=== PATIENT | female | born 1955 | race Caucasian/White ===

== ENCOUNTER 2018-12-17 13:06 | Emergency (ER) | payer OTHER ==
[~2018-12-17] VITALS: Ht 149.9 cm; Wt 57.7 kg
[2018-12-17 13:11] VITALS: BP 131/74
[2018-12-17] MEDS ORDERED: ACETAMINOPHEN EXTRA STRENGTH 500 MG TAB PO ONE (13:25)
[2018-12-17] MEDS ORDERED: IBUPROFEN 600 MG TAB PO ONE (13:25)
--- NOTE | 2018-12-17 13:30 | NUR ---
C/O ABD PAIN AND BODY ACHES X1 DAY. PT REPORTS EPIGASTRIC PAIN THAT RADIATES ACROSS ENTIRE ABD. DAUGHTER REPORTS FEVER LAST NIGHT, CURRENT TEMP IS 102.1. + NAUSEA. - DIARRHEA. DENIES DIARRHEA AND VOMITING; SKIN IS PINK/WARM/DRY; AAOX4 WITH EVEN AND STEADY GAIT; LUNGS CLEAR BL; HR EVEN AND REGULAR; PT DENIES ANY FEVER, CP, SOB, OR COUGH AT THIS TIME; PATIENT STATES PAIN OF 9/10 AT THIS TIME; VSS; PATIENT POSITIONED FOR COMFORT; HOB ELEVATED; BEDRAILS UP X1; BED DOWN. ER MD MADE AWARE OF PT STATUS.
[2018-12-17 13:41] LABS: BASOPHILS % (AUTO) 0.2 % (0.0-2.0); EOSINOPHILS % (AUTO) 0.2 % (0.0-4.0); HEMATOCRIT 41.3 % (36-48); HEMOGLOBIN 14.1 g/dL (12.0-16.0); LYMPHOCYTES # (AUTO) 0.8 K/uL (2.5-16.5); LYMPHOCYTES % (AUTO) 10.6 % (20.5-51.1); MEAN CORPUSCULAR HEMOGLOBIN 31 pg (27-31); MEAN CORPUSCULAR HGB CONC 34 g/dL (33-37); MEAN CORPUSCULAR VOLUME 91.8 fL (80-94); MONOCYTES # (AUTO) 0.5 K/uL (0.8-1.0); MONOCYTES % (AUTO) 7.2 % (1.7-9.3); NEUTROPHILS # (AUTO) 6.2 K/uL (1.8-7.7); NEUTROPHILS % (AUTO) 81.8 % (42.2-75.2); PLATELET COUNT (AUTO) 203 K/uL (140-450); RED CELL DISTRIBUTION WIDTH 12.6 % (11.6-13.7); WHITE BLOOD COUNT (AUTO) 7.5 K/uL (4.8-10.8)
[2018-12-17 14:10] LABS: ANION GAP 12.6 (8-16); CARBON DIOXIDE 26.9 mmol/L (21-32); CREATININE 0.6 mg/dL (0.6-1.3); POTASSIUM 3.5 mmol/L (3.5-5.1)
[2018-12-17 14:16] LABS: ALBUMIN 3.8 g/dL (3.4-5.0)
[2018-12-17 14:46] LABS: BILIRUBIN,URINE 1+ (NEGATIVE); BLOOD, URINE TRACE-I (NEGATIVE); COLOR,URINE YELLOW (YELLOW); LEUKOCYTE ESTERASE ,URINE TRACE (NEGATIVE); NITRITE, URINE NEGATIVE (NEGATIVE); UGLUCOSE NEGATIVE (NEGATIVE)
[2018-12-17 14:47] LABS: APPEARANCE,URINE HAZY (CLEAR)
[2018-12-17 14:58] LABS: RBC,URINE 0-5 /HPF (0-5)
[2018-12-17] MEDS ORDERED: PIPERACILLIN/TAZOBACTAM 3.375 GM in DEXT 5% MINI-BAG PLUS 50 ML IV ONE (15:00)
[2018-12-17] MEDS ORDERED: NACL 0.9% 1,000 ML IV ONE (15:00)
[2018-12-17] MEDS ORDERED: NACL 0.9% 2,000 ML IV SCH (15:00)
[2018-12-17 15:25] LABS: AMYLASE 36 U/L (25-115); LIPASE 168 U/L (73-393)
[2018-12-17] MEDS ORDERED: PIPERACILLIN/TAZOBACTAM 3.375 GM VIAL IV ONE (15:33)
[2018-12-17] MEDS ORDERED: LEVOFLOXACIN 500 MG TAB PO ONE (16:20)
[2018-12-17 17:00] VITALS: BP 107/64
--- NOTE | 2018-12-17 17:00 | NUR ---
Patient discharged with v/s stable. Written and verbal after care instructions given and explained. Patient alert, oriented and verbalized understanding of instructions. Ambulatory with steady gait. All questions addressed prior to discharge. ID band removed. Patient advised to follow up with PMD. Rx of Levaquin and Fioricet given. Patient educated on indication of medication including possible reaction and side effects. Opportunity to ask questions provided and answered.
== END 2018-12-17 17:00 | disposition home or self-care (01) ==
LOC: MED 13:06
DX: N39.0 Urinary tract infection, site not specified (principal); E11.9 Type 2 diabetes mellitus without complications; Z90.710 Acquired absence of both cervix and uterus
CPT/HCPCS: 36415; 71045; 74176; 80053; 81001; 81025; 82150; 83605; 83690; 84484; 85025; 87040; 87086; 87186; 93005; 96365; 99284; J2543; J7030; J7060; Q0092